=== PATIENT | female | born 1975 | race Two or more races ===

== ENCOUNTER 2018-01-18 23:27 | Emergency (ER) | payer MEDICAID ==
[~2018-01-18] VITALS: Ht 165.1 cm; Wt 90.0 kg
[2018-01-18 23:31] VITALS: BP 178/118
[2018-01-18] MEDS ORDERED: NAPROXEN 500 MG TABLET ONE (23:50)
[2018-01-19] MEDS ORDERED: NAPROXEN 500 MG TABLET PO ONE
== END 2018-01-19 00:46 | disposition home or self-care (01) ==
LOC: ED 23:53
DX: M25.572 Pain in left ankle and joints of left foot (principal); I10 Essential (primary) hypertension
CPT/HCPCS: 99284

== ENCOUNTER 2018-03-20 19:06 | Emergency (ER) | payer SELFPAY ==
[~2018-03-20] VITALS: Ht 165.1 cm; Wt 90.3 kg
[2018-03-20 19:25] LABS: BASOPHILS # (AUTO) 0.05 x10^3/uL (0-0.1); BASOPHILS % (AUTO) 1 % (0-1); EOSINOPHILS # (AUTO) 0.17 x10^3/uL (0-0.4); EOSINOPHILS % (AUTO) 2 % (1-7); LYMPHOCYTES # (AUTO) 2.83 x10^3/uL (1-3.4); LYMPHOCYTES % (AUTO) 28 % (22-44); MD NO; MEAN CORPUSCULAR HEMOGLOBIN 29.5 pg (27.0-34.8); MEAN CORPUSCULAR HGB CONC 33.8 g/dL (32.4-35.8); MEAN CORPUSCULAR VOLUME 87.4 fL (80-100); MEAN PLATELET VOLUME 8.2 fL (7.4-10.4); MONOCYTES # (AUTO) 0.57 x10^3/uL (0.2-0.8); MONOCYTES % (AUTO) 6 % (2-9); NEUTROPHILS % (AUTO) 64 % (42-75); PLATELET COUNT 347 x10^3/uL (130-400); RED BLOOD COUNT 4.45 x10^6/uL (3.82-5.3)
[2018-03-20] MEDS ORDERED: anxiety med PO (19:30)
[2018-03-20] MEDS ORDERED: SODIUM CHLORIDE FLUSH 10ML SYR IVF ONE (19:30)
[2018-03-20] MEDS ORDERED: MORPHINE SULFATE 4 MG/ML, 1ML ONE ×2 (19:31→21:36)
[2018-03-20] MEDS: MORPHINE SULFATE 4 MG/ML, 1ML IVPush PRN ×2 (19:35→21:37)
[2018-03-20 19:40] LABS: ALBUMIN 3.9 g/dL (3.4-5.0); ANION GAP 9 mmol/L (5-15); CALCIUM 8.4 mg/dL (8.5-10.1); CHLORIDE 108 mmol/L (98-107)
[2018-03-20] MEDS ORDERED: DIPHENHYDRAMINE 50 MG/ML, 1ML ONE (19:56)
[2018-03-20] MEDS ORDERED: DIPHENHYDRAMINE 50 MG/ML, 1ML IVPush ONE (20:00)
[2018-03-20] MEDS ORDERED: OMNIPAQUE 350 MG/ML, 100ML BOTTLE ONE (20:20)
[2018-03-20 21:40] VITALS: BP 160/110
== END 2018-03-20 22:17 | disposition home or self-care (01) ==
LOC: ED 19:30
DX: S39.012A Strain of muscle, fascia and tendon of lower back, initial encounter (principal); S16.1XXA Strain of muscle, fascia and tendon at neck level, initial encounter; S29.012A Strain of muscle and tendon of back wall of thorax, initial encounter; V49.49XA Driver injured in collision with other motor vehicles in traffic accident, initial encounter; Y93.89 Activity, other specified; Y92.89 Other specified places as the place of occurrence of the external cause; Y99.8 Other external cause status
CPT/HCPCS: 36415; 70450; 71045; 72072; 72110; 72125; 73030; 73502; 74177; 80048; 80307; 82040; 84703; 85025; 96374; 96375; 96376; 99284; J1200; Q9967